=== PATIENT | male | born 1980 | race African-American/Black ===

== ENCOUNTER 2017-09-18 05:55 | Emergency (ER) | payer SELFPAY ==
[2017-09-18] MEDS: KETOROLAC 30 MG INJ IM (07:23)
[2017-09-18] MEDS: DIAZEPAM 5 MG/ML SYG IM (07:36)
== END 2017-09-18 07:45 | disposition home or self-care (01) ==
LOC: FTE 07:45
DX: M54.5 Low back pain (principal)
CPT/HCPCS: 96372; 99284-25; J1885